=== PATIENT | female | born 1970 | race American Indian/Alaskan Native ===

== ENCOUNTER 2016-09-06 09:40 | Inpatient (IN) | payer MEDICAID ==
[2016-09-06 09:40] VITALS: BMI 27.3
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
[2016-09-06 12:12] LABS: BASO # 0.1 K/uL (0.0-0.2); BASO % 0.9 % (0.0-2.0); EOS # 0.2 K/uL (0.0-0.7); EOS % 2.3 % (0.0-4.0); HEMOGLOBIN 13.5 g/dL (11.0-16.0); LYMPH # 3.3 K/uL (1.0-4.3); LYMPH % 48.5 % (20.0-40.0); MEAN CORPUSCULAR HEMOGLOBIN 25.1 pg (27.0-31.0); MEAN CORPUSCULAR HGB CONC 33.3 g/dL (33.0-37.0); MEAN PLATELET VOLUME 8.8 fL (7.2-11.7); MONO # 0.6 K/uL (0.0-0.8); MONO % 9.1 % (0.0-10.0); NEUT # 2.7 K/uL (1.8-7.0); NEUT % 39.2 % (50.0-75.0); NRBC % 0.2 % (0.0-2.0); RBC 5.38 Mil/uL (3.80-5.20); RED CELL DISTRIBUTION WIDTH 15.9 % (11.5-14.5); WHITE BLOOD COUNT 6.9 K/uL (4.8-10.8)
[2016-09-06 12:14] LABS: MEAN CELL VOLUME 75.5 fL (81.0-99.0)
[2016-09-06 12:17] LABS: PROTHROMBIN TIME 10.6 SECONDS (9.7-12.2)
[2016-09-06 12:26] LABS: ALBUMIN 4.2 g/dL (3.5-5.0)
[2016-09-06 12:28] LABS: GFR AFRICAN-AMERICAN > 60; GFR NON-AFRICAN AMERICAN 60
[2016-09-06 12:29] LABS: ALT/SGPT 13 U/L (9-52); AST/SGOT 51 U/L (14-36); BLOOD UREA NITROGEN 10 mg/dL (7-17)
[2016-09-06 12:30] LABS: CALCIUM 9.5 mg/dl (8.6-10.4)
[2016-09-06] MEDS ORDERED: ceFAZolin IV 1 gm in Dextrose 1 GM/50 ML BAG IVPB ONE (14:55)
[2016-09-06] MEDS ORDERED: Bupivacaine HCl 0.25% PF (10 ml) Inj ONE (14:56)
[2016-09-06] MEDS ORDERED: Lidocaine 1% Inj (20ml) ONE (14:56)
[2016-09-06] MEDS ORDERED: HYDROmorphone 0.5 mg/0.5 ml ISec IVP PRN ×2 (15:12→17:01)
[2016-09-06 15:51] LABS: GFR AFRICAN-AMERICAN > 60; GFR NON-AFRICAN AMERICAN 60
[2016-09-06] MEDS ORDERED: Lactated Ringer's 1,000 ML IV ONE ×2 (15:51)
[2016-09-06 15:52] LABS: BLOOD UREA NITROGEN 9 mg/dL (7-17); CALCIUM 8.9 mg/dl (8.6-10.4)
[2016-09-06] MEDS ORDERED: Midazolam 2 MG/2 ML VIAL ONE (16:07)
[2016-09-06] MEDS ORDERED: Propofol 10 mg/ml Inj (20 ML) ONE (16:07)
[2016-09-06] MEDS ORDERED: Silver Sulfadiazine 1% Cream (20 gm) ONE (16:40)
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
[2016-09-06] MEDS ORDERED: Albuterol-Ipratrop 3 mg / 0.5 (3 ml) UD INH SCH (20:00)
[2016-09-06] MEDS ORDERED: Albuterol-Ipratrop 3 mg / 0.5 (3 ml) UD INH PRN (20:32)
[2016-09-06] MEDS: Dextrose 5%/0.45% NS 1,000 ML IV SCH (20:37)
[2016-09-06] MEDS: ceFAZolin IV 1 gm in Dextrose 1 GM/50 ML BAG IVPB SCH (21:43)
[2016-09-06] MEDS: Oxycodone/Acetaminophen 5/325 mg Tab PO PRN (21:48)
[2016-09-07] MEDS: Dextrose 5%/0.45% NS 1,000 ML IV SCH ×4 (04:11→23:48)
[2016-09-07] MEDS: ceFAZolin IV 1 gm in Dextrose 1 GM/50 ML BAG IVPB SCH (05:35)
--- NOTE | 2016-09-07 11:18 | CP.PCM.PN ---
Subjective - Date & Time of Evaluation Date of Evaluation: 09/07/16 Time of Evaluation: 07:25 - Subjective Subjective: PGY2 Medicine note - Dr. Carpenter's Service Patient seen and examined at bedside. No overnight events per nursing. Patient is resting comfortably, s/p L arm wound debridement, POD #1. NPO for 2nd OR session with Dr. Love later today. Denies fevers, chills, chest pain, SOB, LE edema, or any additional complaints. Pain well controlled. Objective - Vital Signs/Intake and Output Vital Signs (last 24 hours): Temp Pulse Resp BP Pulse Ox 97.5 F L 59 L 20 128/68 100 09/07/16 09:04 09/07/16 09:04 09/07/16 09:04 09/07/16 09:04 09/07/16 09:04 Intake and Output: 09/07/16 09/07/16 06:59 18:59 Intake Total 1650 Output Total 300 Balance 1350 - Medications Medications: Current Medications Albuterol/Ipratropium (Duoneb 3 Mg/0.5 Mg (3 Ml) Ud) 3 ml INH RQ6 PRN PRN Reason: Shortness of Breath Docusate Sodium (Colace) 100 mg PO BID [facility] Last Admin: 09/07/16 10:08 Dose: Not Given Dextrose/Sodium Chloride (Dextrose 5%/0.45% Ns 1000 Ml) 1,000 mls @ 100 mls/hr IV .Q10H [facility] Last Admin: 09/07/16 06:54 Dose: 100 mls/hr Cefazolin Sodium/Dextrose (Ancef Iv 1 Gm Duplex) 1 gm in 50 mls @ 100 mls/hr IVPB Q8H [facility] Last Admin: 09/07/16 05:35 Dose: 100 mls/hr Ketorolac Tromethamine (Toradol) 30 mg IVP Q6 PRN PRN Reason: pain 8-10 Stop: 09/11/16 17:05 Last Admin: 09/07/16 04:06 Dose: 30 mg Oxycodone/Acetaminophen (Percocet 5/325 Mg Tab) 1 tab PO Q4H PRN PRN Reason: pain Stop: 09/09/16 17:05 Last Admin: 09/06/16 21:48 Dose: 1 tab Pantoprazole Sodium (Protonix Inj) 40 mg IVP DAILY [facility] Last Admin: 09/07/16 10:07 Dose: 40 mg - Labs Labs: 09/06/16 15:36 PT 10.6 SECONDS (9.7-12.2) 09/06/16 11:58 INR 1.0 09/06/16 11:58 APTT 31 SECONDS (21-34) 09/06/16 11:58 - Additional Findings Additional findings: - Constitutional Appears: Well, Non-toxic - Head Exam Head Exam: ATRAUMATIC, NORMAL INSPECTION - Eye Exam Eye Exam: EOMI Pupil Exam: PERRL - ENT Exam ENT Exam: Mucous Membranes Moist - Neck Exam Neck exam: Positive for: Full Rom - Respiratory Exam Respiratory Exam: Clear to Auscultation Bilateral, NORMAL BREATHING PATTERN. absent: Rales, Rhonchi, Wheezes - Cardiovascular Exam Cardiovascular Exam: REGULAR RHYTHM, +S1, +S2 - GI/Abdominal Exam GI & Abdominal Exam: Normal Bowel Sounds, Soft. absent: Tenderness - Extremities Exam Extremities exam: Positive for: normal inspection. Negative for: calf tenderness, full ROM Additional comments: Left bicep dressed s/p debridement, CDI - Back Exam Back exam: NORMAL INSPECTION. absent: CVA tenderness (L), CVA tenderness (R) - Neurological Exam Neurological exam: Alert, CN II-XII Intact - Psychiatric Exam Psychiatric exam: Normal Affect, Normal Mood - Skin Skin Exam: Warm, Dry Assessment and Plan - Assessment and Plan (Free Text) Assessment: Traumatic wound of L Arm 09/07: Stop Cefazoline 1gm IVPB Q8H. Start Zosyn 3.375 IVPB Q8H -Dr. Love, took patient to OR for debridement 09/06/16. -percocet 1tab PO q4H PRN -Ketorolac 30mg IVP Q6 PRN -colace 100mg po bid -IVF 100cc/hr -f/u wound culture -ID consulted, Dr. Burleson, help appreciated. Asthma -not in acute exacerbation -albuterol PRN Proph -SCD -Regular diet -Protonix 40mg IVP qd
[2016-09-07 12:07] LABS: ALBUMIN 2.9 g/dL (3.5-5.0)
[2016-09-07 12:09] LABS: BASO % 0.4 % (0.0-2.0); EOS # 0.1 K/uL (0.0-0.7); EOS % 1.9 % (0.0-4.0); LYMPH # 2.8 K/uL (1.0-4.3); LYMPH % 46.2 % (20.0-40.0); MEAN CELL VOLUME 75.7 fL (81.0-99.0); MEAN CORPUSCULAR HEMOGLOBIN 25.1 pg (27.0-31.0); MEAN CORPUSCULAR HGB CONC 33.1 g/dL (33.0-37.0); MEAN PLATELET VOLUME 8.9 fL (7.2-11.7); MONO # 0.6 K/uL (0.0-0.8); MONO % 9.9 % (0.0-10.0); NEUT # 2.5 K/uL (1.8-7.0); NEUT % 41.6 % (50.0-75.0); NRBC % 0.1 % (0.0-2.0); RBC 4.47 Mil/uL (3.80-5.20); RED CELL DISTRIBUTION WIDTH 15.8 % (11.5-14.5)
[2016-09-07 12:10] LABS: ALB/GLOB RATIO 0.9 (1.0-2.1); AST/SGOT 19 U/L (14-36); GFR AFRICAN-AMERICAN > 60; GFR NON-AFRICAN AMERICAN 60
[2016-09-07 12:11] LABS: ALT/SGPT 20 U/L (9-52); BLOOD UREA NITROGEN 10 mg/dL (7-17); CALCIUM 8.4 mg/dl (8.6-10.4); MAGNESIUM 1.8 mg/dL (1.6-2.3)
[2016-09-07 12:11] LABS: HEMOGLOBIN 11.2 g/dL (11.0-16.0)
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
[2016-09-07] MEDS ORDERED: Bupivacaine HCl 0.25% PF (10 ml) Inj ONE (13:18)
[2016-09-07] MEDS ORDERED: Lidocaine 1% Inj (20ml) ONE (13:19)
[2016-09-07] MEDS ORDERED: Midazolam 2 MG/2 ML VIAL ONE (14:02)
[2016-09-07] MEDS ORDERED: Propofol 10 mg/ml Inj (20 ML) ONE (14:02)
[2016-09-07] MEDS ORDERED: Lactated Ringer's 1,000 ML IV ONE ×2 (14:09)
[2016-09-07] MEDS ORDERED: Silver Sulfadiazine 1% Cream (20 gm) ONE (14:16)
[2016-09-07] MEDS: Piperacill/Tazo 3.375gm in Dex 3.375 GM/50 ML BAG IVPB SCH ×2 (14:40→21:41)
[2016-09-07] MEDS ORDERED: HYDROmorphone 0.5 mg/0.5 ml ISec IVP PRN (15:22)
[2016-09-07] MEDS: Oxycodone/Acetaminophen 5/325 mg Tab PO PRN (23:02)
[2016-09-08] MEDS: Piperacill/Tazo 3.375gm in Dex 3.375 GM/50 ML BAG IVPB SCH ×3 (05:32→21:55)
[2016-09-08] MEDS: Dextrose 5%/0.45% NS 1,000 ML IV SCH (08:38)
[2016-09-08 09:04] LABS: BASO % 0.4 % (0.0-2.0); EOS # 0.1 K/uL (0.0-0.7); EOS % 2.4 % (0.0-4.0); HEMOGLOBIN 11.1 g/dL (11.0-16.0); LYMPH # 2.4 K/uL (1.0-4.3); LYMPH % 41.7 % (20.0-40.0); MEAN CELL VOLUME 76.4 fL (81.0-99.0); MEAN CORPUSCULAR HEMOGLOBIN 25.4 pg (27.0-31.0); MEAN CORPUSCULAR HGB CONC 33.3 g/dL (33.0-37.0); MEAN PLATELET VOLUME 8.6 fL (7.2-11.7); MONO # 0.7 K/uL (0.0-0.8); MONO % 11.4 % (0.0-10.0); NEUT # 2.6 K/uL (1.8-7.0); NEUT % 44.1 % (50.0-75.0); NRBC % 0.1 % (0.0-2.0); RBC 4.37 Mil/uL (3.80-5.20); RED CELL DISTRIBUTION WIDTH 16.1 % (11.5-14.5); WHITE BLOOD COUNT 5.9 K/uL (4.8-10.8)
[2016-09-08 09:11] LABS: ALBUMIN 2.9 g/dL (3.5-5.0)
[2016-09-08 09:14] LABS: ALB/GLOB RATIO 0.9 (1.0-2.1); AST/SGOT 24 U/L (14-36); GFR AFRICAN-AMERICAN > 60; GFR NON-AFRICAN AMERICAN 60
[2016-09-08 09:15] LABS: ALT/SGPT 18 U/L (9-52); BLOOD UREA NITROGEN 9 mg/dL (7-17); CALCIUM 8.1 mg/dl (8.6-10.4)
[2016-09-08] MEDS: Oxycodone/Acetaminophen 5/325 mg Tab PO PRN ×2 (10:49→19:58)
--- NOTE | 2016-09-08 14:13 | CP.PCM.PN ---
Subjective - Date & Time of Evaluation Date of Evaluation: 09/08/16 Time of Evaluation: 08:05 - Subjective Subjective: PGY2 Medicine note - Dr. Carpenter's Service Patient seen and examined at bedside. No overnight events per nursing. Patient is resting comfortably, s/p L arm wound debridement initially performed . NPO for 3rd OR session with Dr. Love later today. Denies fevers, chills , chest pain, SOB, LE edema, or any additional complaints. Pain well controlled. Objective - Vital Signs/Intake and Output Vital Signs (last 24 hours): Temp Pulse Resp BP Pulse Ox 98.1 F 60 20 116/71 60 L 09/08/16 07:00 09/08/16 07:00 09/08/16 07:00 09/08/16 07:00 09/08/16 07:00 Intake and Output: 09/08/16 09/08/16 06:59 18:59 Intake Total 1350 Balance 1350 - Medications Medications: Current Medications Albuterol/Ipratropium (Duoneb 3 Mg/0.5 Mg (3 Ml) Ud) 3 ml INH RQ6 PRN PRN Reason: Shortness of Breath Docusate Sodium (Colace) 100 mg PO BID [facility] Last Admin: 09/08/16 10:31 Dose: Not Given Dextrose/Sodium Chloride (Dextrose 5%/0.45% Ns 1000 Ml) 1,000 mls @ 100 mls/hr IV .Q10H [facility] Last Admin: 09/08/16 08:38 Dose: 100 mls/hr Piperacillin Sod/Tazobactam Sod (Zosyn 3.375 Gm Iv Premix) 3.375 gm in 50 mls @ 100 mls/hr IVPB Q8H [facility] Last Admin: 09/08/16 13:17 Dose: 100 mls/hr Ketorolac Tromethamine (Toradol) 30 mg IVP Q6 PRN PRN Reason: pain 8-10 Stop: 09/11/16 17:05 Last Admin: 09/07/16 18:47 Dose: 30 mg Oxycodone/Acetaminophen (Percocet 5/325 Mg Tab) 1 tab PO Q4H PRN PRN Reason: pain Stop: 09/09/16 17:05 Last Admin: 09/08/16 10:49 Dose: 1 tab Pantoprazole Sodium (Protonix Inj) 40 mg IVP DAILY [facility] Last Admin: 09/08/16 10:31 Dose: 40 mg - Labs Labs: 09/08/16 08:47 09/08/16 08:56 PT 10.6 SECONDS (9.7-12.2) 09/06/16 11:58 INR 1.0 09/06/16 11:58 APTT 31 SECONDS (21-34) 09/06/16 11:58 - Additional Findings Additional findings: - Constitutional Appears: Well, Non-toxic - Head Exam Head Exam: ATRAUMATIC, NORMAL INSPECTION - Eye Exam Eye Exam: EOMI Pupil Exam: PERRL - ENT Exam ENT Exam: Mucous Membranes Moist - Neck Exam Neck exam: Positive for: Full Rom - Respiratory Exam Respiratory Exam: Clear to Auscultation Bilateral, NORMAL BREATHING PATTERN. absent: Rales, Rhonchi, Wheezes - Cardiovascular Exam Cardiovascular Exam: REGULAR RHYTHM, +S1, +S2 - GI/Abdominal Exam GI & Abdominal Exam: Normal Bowel Sounds, Soft. absent: Tenderness - Extremities Exam Extremities exam: Positive for: normal inspection. Negative for: calf tenderness, full ROM Additional comments: Left bicep dressed s/p debridement, CDI - Back Exam Back exam: NORMAL INSPECTION. absent: CVA tenderness (L), CVA tenderness (R) - Neurological Exam Neurological exam: Alert, CN II-XII Intact - Psychiatric Exam Psychiatric exam: Normal Affect, Normal Mood - Skin Skin Exam: Warm, Dry Assessment and Plan - Assessment and Plan (Free Text) Assessment: Traumatic wound of L Arm 09/08: Going to 3rd OR session with Dr. Love. Continue IV Abx. 09/07: Stop Cefazoline 1gm IVPB Q8H. Start Zosyn 3.375 IVPB Q8H -Dr. Love, took patient to OR for debridement 09/06/16. -percocet 1tab PO q4H PRN -Ketorolac 30mg IVP Q6 PRN -colace 100mg po bid -IVF 100cc/hr -f/u wound culture -ID consulted, Dr. Burleson, help appreciated. Asthma -not in acute exacerbation -albuterol PRN Prophylaxis -SCD -Regular diet -Protonix 40mg IVP qd
[2016-09-08] MEDS ORDERED: Lactated Ringer's 1,000 ML IV ONE (16:50)
[2016-09-08] MEDS ORDERED: Midazolam 2 MG/2 ML VIAL ONE (17:00)
[2016-09-08] MEDS ORDERED: Propofol 10 mg/ml Inj (20 ML) ONE (17:04)
[2016-09-08] MEDS ORDERED: HYDROmorphone 0.5 mg/0.5 ml ISec IVP PRN (17:31)
--- NOTE | 2016-09-08 19:08 | CP.PCM.PN ---
Subjective - Date & Time of Evaluation Date of Evaluation: 09/08/16 Time of Evaluation: 09:00 - Subjective Subjective: s/p L arm wound debridement initially performed 09/06/16. NPO for 3rd OR session with Dr. Love later today. Objective - Vital Signs/Intake and Output Vital Signs (last 24 hours): Temp Pulse Resp BP Pulse Ox 97.2 F L 54 L 12 138/84 96 09/08/16 18:00 09/08/16 18:10 09/08/16 18:10 09/08/16 18:10 09/08/16 18:10 - Medications Medications: Current Medications Albuterol/Ipratropium (Duoneb 3 Mg/0.5 Mg (3 Ml) Ud) 3 ml INH RQ6 PRN PRN Reason: Shortness of Breath Docusate Sodium (Colace) 100 mg PO BID [facility] Last Admin: 09/08/16 18:49 Dose: 100 mg Hydromorphone HCl (Dilaudid) 0.5 mg IVP Q5M PRN PRN Reason: Pain, moderate (4-7) Stop: 09/08/16 19:31 Dextrose/Sodium Chloride (Dextrose 5%/0.45% Ns 1000 Ml) 1,000 mls @ 100 mls/hr IV .Q10H [facility] Last Admin: 09/08/16 08:38 Dose: 100 mls/hr Piperacillin Sod/Tazobactam Sod (Zosyn 3.375 Gm Iv Premix) 3.375 gm in 50 mls @ 100 mls/hr IVPB Q8H [facility] Last Admin: 09/08/16 13:17 Dose: 100 mls/hr Ketorolac Tromethamine (Toradol) 30 mg IVP Q6 PRN PRN Reason: pain 8-10 Stop: 09/11/16 17:05 Last Admin: 09/07/16 18:47 Dose: 30 mg Ondansetron HCl (Zofran Inj) 4 mg IVP ONCE PRN PRN Reason: Nausea/Vomiting Stop: 09/08/16 19:31 Oxycodone/Acetaminophen (Percocet 5/325 Mg Tab) 1 tab PO Q4H PRN PRN Reason: pain Stop: 09/09/16 17:05 Last Admin: 09/08/16 10:49 Dose: 1 tab Pantoprazole Sodium (Protonix Inj) 40 mg IVP DAILY [facility] Last Admin: 09/08/16 10:31 Dose: 40 mg - Labs Labs: 09/08/16 08:47 09/08/16 08:56 PT 10.6 SECONDS (9.7-12.2) 09/06/16 11:58 INR 1.0 09/06/16 11:58 APTT 31 SECONDS (21-34) 09/06/16 11:58 - Constitutional Appears: Non-toxic, Chronically Ill - Head Exam Head Exam: NORMOCEPHALIC - Eye Exam Eye Exam: absent: Scleral icterus - ENT Exam ENT Exam: Mucous Membranes Dry - Neck Exam Neck Exam: absent: Lymphadenopathy - Respiratory Exam Respiratory Exam: Decreased Breath Sounds, Clear to Ausculation Bilateral Assessment and Plan - Assessment and Plan (Free Text) Plan: cont debridement / IV antibiotics
[2016-09-09] MEDS: Oxycodone/Acetaminophen 5/325 mg Tab PO PRN ×2 (00:54→10:18)
[2016-09-09] MEDS: Piperacill/Tazo 3.375gm in Dex 3.375 GM/50 ML BAG IVPB SCH ×3 (05:01→21:11)
[2016-09-09] MEDS: Dextrose 5%/0.45% NS 1,000 ML IV SCH (05:01)
[2016-09-09 08:30] LABS: ALBUMIN 3.3 g/dL (3.5-5.0); HEMOGLOBIN 12.4 g/dL (11.0-16.0); MEAN CELL VOLUME 75.8 fL (81.0-99.0); MEAN CORPUSCULAR HEMOGLOBIN 25.1 pg (27.0-31.0); MEAN CORPUSCULAR HGB CONC 33.1 g/dL (33.0-37.0); MEAN PLATELET VOLUME 8.9 fL (7.2-11.7); RBC 4.93 Mil/uL (3.80-5.20); RED CELL DISTRIBUTION WIDTH 15.8 % (11.5-14.5); WHITE BLOOD COUNT 6.4 K/uL (4.8-10.8)
[2016-09-09 08:33] LABS: ALB/GLOB RATIO 0.9 (1.0-2.1)
[2016-09-09 08:34] LABS: CALCIUM 8.8 mg/dl (8.6-10.4); MAGNESIUM 2.1 mg/dL (1.6-2.3)
[2016-09-09 09:03] LABS: MONO # 0.5 K/uL (0.0-0.8)
[2016-09-09] MEDS ORDERED: Lidocaine 1% Inj (20ml) ONE (10:57)
--- NOTE | 2016-09-09 11:19 | CP.PCM.PN ---
Subjective - Date & Time of Evaluation Date of Evaluation: 09/09/16 Time of Evaluation: 07:45 - Subjective Subjective: PGY2 Medicine note - Dr. Carpenter's Service Patient seen and examined at bedside. No overnight events per nursing. Patient is resting comfortably, s/p L arm wound debridement initially performed . Patient had 3rd OR session with Dr. Love yesterday, and is schedules for OR again tomorrow. Patient is a difficult stick, and pulled peripheral line out accidentally. Patient refusing to cooperate this morning, states she may leave AMA. Denies fevers, chills, chest pain, SOB, LE edema, or any additional complaints. Pain well controlled. Objective - Vital Signs/Intake and Output Vital Signs (last 24 hours): Temp Pulse Resp BP Pulse Ox 98.3 F 62 20 136/69 100 09/09/16 08:57 09/09/16 08:57 09/09/16 08:57 09/09/16 08:57 09/09/16 08:57 - Medications Medications: Current Medications Albuterol/Ipratropium (Duoneb 3 Mg/0.5 Mg (3 Ml) Ud) 3 ml INH RQ6 PRN PRN Reason: Shortness of Breath Docusate Sodium (Colace) 100 mg PO BID [facility] Last Admin: 09/08/16 18:49 Dose: 100 mg Dextrose/Sodium Chloride (Dextrose 5%/0.45% Ns 1000 Ml) 1,000 mls @ 100 mls/hr IV .Q10H [facility] Last Admin: 09/09/16 05:01 Dose: Not Given Piperacillin Sod/Tazobactam Sod (Zosyn 3.375 Gm Iv Premix) 3.375 gm in 50 mls @ 100 mls/hr IVPB Q8H [facility] Last Admin: 09/09/16 05:01 Dose: Not Given Ketorolac Tromethamine (Toradol) 30 mg IVP Q6 PRN PRN Reason: pain 8-10 Stop: 09/11/16 17:05 Last Admin: 09/07/16 18:47 Dose: 30 mg Lidocaine HCl (Lidocaine 1%) 20 ml INFIL ONCE ONE Stop: 09/09/16 11:31 Oxycodone/Acetaminophen (Percocet 5/325 Mg Tab) 1 tab PO Q4H PRN PRN Reason: pain Stop: 09/09/16 17:05 Last Admin: 09/09/16 10:18 Dose: 1 tab Pantoprazole Sodium (Protonix Inj) 40 mg IVP DAILY [facility] Last Admin: 09/08/16 10:31 Dose: 40 mg - Labs Labs: 09/09/16 08:08 09/09/16 08:08 PT 10.6 SECONDS (9.7-12.2) 09/06/16 11:58 INR 1.0 09/06/16 11:58 APTT 31 SECONDS (21-34) 09/06/16 11:58 - Additional Findings Additional findings: - Constitutional Appears: Well, Non-toxic - Head Exam Head Exam: ATRAUMATIC, NORMAL INSPECTION - Eye Exam Eye Exam: EOMI Pupil Exam: PERRL - ENT Exam ENT Exam: Mucous Membranes Moist - Neck Exam Neck exam: Positive for: Full Rom - Respiratory Exam Respiratory Exam: Clear to Auscultation Bilateral, NORMAL BREATHING PATTERN. absent: Rales, Rhonchi, Wheezes - Cardiovascular Exam Cardiovascular Exam: REGULAR RHYTHM, +S1, +S2 - GI/Abdominal Exam GI & Abdominal Exam: Normal Bowel Sounds, Soft. absent: Tenderness - Extremities Exam Extremities exam: Positive for: normal inspection. Negative for: calf tenderness, full ROM Additional comments: Left bicep dressed s/p debridement, CDI - Back Exam Back exam: NORMAL INSPECTION. absent: CVA tenderness (L), CVA tenderness (R) - Neurological Exam Neurological exam: Alert, CN II-XII Intact - Psychiatric Exam Psychiatric exam: Normal Affect, Normal Mood - Skin Skin Exam: Warm, Dry Assessment and Plan - Assessment and Plan (Free Text) Assessment: Traumatic wound of L Arm 09/09: Patient NPO AM for OR session with Dr. Love tomorrow. 09/08: Going to 3rd OR session with Dr. Love. Continue IV Abx. 09/07: Stop Cefazoline 1gm IVPB Q8H. Start Zosyn 3.375 IVPB Q8H -Dr. Love, took patient to OR for debridement 09/06/16. -percocet 1tab PO q4H PRN -Ketorolac 30mg IVP Q6 PRN -colace 100mg po bid -IVF 100cc/hr -f/u wound culture -ID consulted, Dr. Burleson, help appreciated. Asthma -not in acute exacerbation -albuterol PRN Prophylaxis -SCD -Regular diet -Protonix 40mg IVP qd
[2016-09-09] MEDS ORDERED: Lidocaine 1% Inj (20ml) INFIL ONE (11:30)
[2016-09-10] MEDS: Dextrose 5%/0.45% NS 1,000 ML IV SCH ×3 (02:33→21:15)
[2016-09-10] MEDS: Piperacill/Tazo 3.375gm in Dex 3.375 GM/50 ML BAG IVPB SCH ×3 (06:26→19:59)
[2016-09-10] MEDS ORDERED: Pantoprazole 40 mg EC Tab PO SCH (10:00)
[2016-09-10 11:06] LABS: MEAN CORPUSCULAR HEMOGLOBIN 24.5 pg (27.0-31.0); MEAN CORPUSCULAR HGB CONC 32.6 g/dL (33.0-37.0)
[2016-09-10 11:16] LABS: HEMOGLOBIN 11.3 g/dL (11.0-16.0); MEAN CELL VOLUME 75.2 fL (81.0-99.0); RBC 4.62 Mil/uL (3.80-5.20); RED CELL DISTRIBUTION WIDTH 15.6 % (11.5-14.5); WHITE BLOOD COUNT 6.6 K/uL (4.8-10.8)
[2016-09-10 11:26] LABS: ALBUMIN 3.1 g/dL (3.5-5.0)
[2016-09-10 11:29] LABS: ALT/SGPT 20 U/L (9-52); AST/SGOT 21 U/L (14-36); BLOOD UREA NITROGEN 12 mg/dL (7-17); GFR AFRICAN-AMERICAN > 60; GFR NON-AFRICAN AMERICAN 60
[2016-09-10 11:30] LABS: CALCIUM 8.8 mg/dl (8.6-10.4); MAGNESIUM 1.9 mg/dL (1.6-2.3)
[2016-09-10 11:55] LABS: LYMPH # 2.3 K/uL (1.0-4.3); MONO # 1.3 K/uL (0.0-0.8)
[2016-09-10] MEDS ORDERED: Bacitracin Ointment 30 GM TUBE ONE (14:31)
[2016-09-10] MEDS ORDERED: Lactated Ringer's 1,000 ML IV ONE ×2 (14:45→15:43)
[2016-09-10] MEDS ORDERED: Midazolam 2 MG/2 ML VIAL ONE (14:47)
[2016-09-10] MEDS ORDERED: Propofol 10 mg/ml Inj (20 ML) ONE (14:47)
--- NOTE | 2016-09-10 15:25 | CP.PCM.PN ---
Subjective - Date & Time of Evaluation Date of Evaluation: 09/10/16 Time of Evaluation: 09:35 - Subjective Subjective: PGY2 Medicine Note- Dr. Carpenter's service Patient seen and examined. Patient NPO for I&D today. Patient reports mild pain at site of wound but pain is well-managed. Objective - Vital Signs/Intake and Output Vital Signs (last 24 hours): Temp Pulse Resp BP Pulse Ox 98 F 57 L 20 132/75 95 09/10/16 07:00 09/10/16 07:00 09/10/16 07:00 09/10/16 07:00 09/10/16 07:00 - Medications Medications: Current Medications Albuterol/Ipratropium (Duoneb 3 Mg/0.5 Mg (3 Ml) Ud) 3 ml INH RQ6 PRN PRN Reason: Shortness of Breath Docusate Sodium (Colace) 100 mg PO BID [facility] Last Admin: 09/10/16 10:15 Dose: 100 mg Dextrose/Sodium Chloride (Dextrose 5%/0.45% Ns 1000 Ml) 1,000 mls @ 100 mls/hr IV .Q10H [facility] Last Admin: 09/10/16 11:22 Dose: Not Given Piperacillin Sod/Tazobactam Sod (Zosyn 3.375 Gm Iv Premix) 3.375 gm in 50 mls @ 100 mls/hr IVPB Q8H [facility] Last Admin: 09/10/16 12:05 Dose: 100 mls/hr Pantoprazole Sodium (Protonix Ec Tab) 40 mg PO DAILY [facility] Last Admin: 09/10/16 10:15 Dose: 40 mg - Labs Labs: 09/10/16 10:57 09/10/16 10:57 PT 10.6 SECONDS (9.7-12.2) 09/06/16 11:58 INR 1.0 09/06/16 11:58 APTT 31 SECONDS (21-34) 09/06/16 11:58 - Constitutional Appears: Non-toxic, No Acute Distress - Head Exam Head Exam: ATRAUMATIC, NORMOCEPHALIC - Eye Exam Eye Exam: EOMI - ENT Exam ENT Exam: Mucous Membranes Moist - Respiratory Exam Respiratory Exam: Clear to Ausculation Bilateral, NORMAL BREATHING PATTERN. absent: Rales, Rhonchi, Wheezes - Cardiovascular Exam Cardiovascular Exam: +S1, +S2 - GI/Abdominal Exam GI & Abdominal Exam: Soft, Normal Bowel Sounds. absent: Tenderness - Extremities Exam Extremities Exam: absent: Pedal Edema Additional comments: left upper arm wrapped in clean bandage, mild tenderness around dressing - Neurological Exam Neurological Exam: Alert, Awake - Psychiatric Exam Psychiatric exam: Normal Affect - Skin Skin Exam: Dry, Warm Assessment and Plan - Assessment and Plan (Free Text) Assessment: Traumatic wound of L Arm 09/10: Patient to go to OR today with Dr. Love for I&D continue zosyn 09/09: Patient NPO AM for OR session with Dr. Love tomorrow. 09/08: Going to 3rd OR session with Dr. Love. Continue IV Abx. 09/07: Stop Cefazoline 1gm IVPB Q8H. Start Zosyn 3.375 IVPB Q8H -Dr. Love, took patient to OR for debridement 09/06/16. -percocet 1tab PO q4H PRN -Ketorolac 30mg IVP Q6 PRN -colace 100mg po bid -IVF 100cc/hr -wound culture: enterobacter cloacae, sensitive to zosyn -ID consulted, Dr. Burleson, help appreciated. Asthma -not in acute exacerbation -albuterol PRN Prophylaxis -SCD -Protonix 40mg PO qd Disposition Patient to be dc likely tomorrow
[2016-09-10] MEDS ORDERED: HYDROmorphone 0.5 mg/0.5 ml ISec IVP PRN (15:46)
[2016-09-10] MEDS ORDERED: Lactated Ringer's 1,000 ML IV SCH (16:00)
--- NOTE | 2016-09-10 16:40 | CP.PCM.PN ---
Subjective - Date & Time of Evaluation Date of Evaluation: 09/10/16 Time of Evaluation: 08:00 - Subjective Subjective: events noted iv rx in progress Objective - Vital Signs/Intake and Output Vital Signs (last 24 hours): Temp Pulse Resp BP Pulse Ox 97.4 F L 55 L 11 L 152/83 H 98 09/10/16 15:43 09/10/16 16:26 09/10/16 16:26 09/10/16 16:26 09/10/16 16:26 Intake and Output: 09/10/16 09/10/16 06:59 18:59 Intake Total 800 Balance 800 - Medications Medications: Current Medications Albuterol/Ipratropium (Duoneb 3 Mg/0.5 Mg (3 Ml) Ud) 3 ml INH RQ6 PRN PRN Reason: Shortness of Breath Docusate Sodium (Colace) 100 mg PO BID [facility] Last Admin: 09/10/16 10:15 Dose: 100 mg Hydromorphone HCl (Dilaudid) 0.5 mg IVP Q15M PRN PRN Reason: Pain, moderate (4-7) Stop: 09/10/16 17:46 Dextrose/Sodium Chloride (Dextrose 5%/0.45% Ns 1000 Ml) 1,000 mls @ 100 mls/hr IV .Q10H [facility] Last Admin: 09/10/16 11:22 Dose: Not Given Piperacillin Sod/Tazobactam Sod (Zosyn 3.375 Gm Iv Premix) 3.375 gm in 50 mls @ 100 mls/hr IVPB Q8H [facility] Last Admin: 09/10/16 12:05 Dose: 100 mls/hr Lactated Ringer's (Lactated Ringer's) 1,000 mls @ 100 mls/hr IV .Q10H [facility] Ondansetron HCl (Zofran Inj) 4 mg IVP ONCE PRN PRN Reason: Nausea/Vomiting Stop: 09/10/16 17:47 Pantoprazole Sodium (Protonix Ec Tab) 40 mg PO DAILY [facility] Last Admin: 09/10/16 10:15 Dose: 40 mg - Labs Labs: 09/10/16 10:57 09/10/16 10:57 PT 10.6 SECONDS (9.7-12.2) 09/06/16 11:58 INR 1.0 09/06/16 11:58 APTT 31 SECONDS (21-34) 09/06/16 11:58
[2016-09-10 18:38] VITALS: RESP 20
[2016-09-10] MEDS: Oxycodone/Acetaminophen 5/325 mg Tab PO PRN (21:08)
[2016-09-11 01:31] VITALS: O2SAT 96
[2016-09-11] MEDS: Oxycodone/Acetaminophen 5/325 mg Tab PO PRN ×2 (02:53→10:03)
[2016-09-11] MEDS: Piperacill/Tazo 3.375gm in Dex 3.375 GM/50 ML BAG IVPB SCH (04:53)
[2016-09-11 08:56] VITALS: BP 124/65; PULSE 84; TEMP 98.8
--- NOTE | 2016-09-11 22:32 | CP.PCM.PN ---
Subjective - Date & Time of Evaluation Date of Evaluation: 09/11/16 Time of Evaluation: 08:20 Objective - Vital Signs/Intake and Output Vital Signs (last 24 hours): Temp Pulse Resp BP Pulse Ox 98.8 F 84 20 124/65 96 09/11/16 08:54 09/11/16 08:54 09/11/16 08:54 09/11/16 08:54 09/11/16 08:54 - Labs Labs: 09/10/16 10:57 09/10/16 10:57 PT 10.6 SECONDS (9.7-12.2) 09/06/16 11:58 INR 1.0 09/06/16 11:58 APTT 31 SECONDS (21-34) 09/06/16 11:58
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
--- NOTE | 2016-09-30 06:27 | OP ---
PROCEDURE DATE: 09/07/2016 PREOPERATIVE DIAGNOSIS: Large left arm degloving injury and open wound with necrosis. POSTOPERATIVE DIAGNOSIS: Large left arm degloving injury and open wound with necrosis. PROCEDURE PERFORMED: Aggressive debridement, removal of eschar, and partial tissue transfer closure of large open necrotic wound of the left arm. SURGEON: Dr. Love. ANESTHESIA: General. BLOOD LOSS: 15 mL. POSTOP CONDITION: Stable. INDICATION FOR SURGERY: This is a 46-year-old female status post degloving injury of her left arm, initially repaired at [facility]. The overlying degloving skin has necrosed, now undergo debridement of the wound. PROCEDURE: The patient was taken to the operating room. General anesthesia was administered. The left arm was prepped and draped. The overlying tissue eschar and the eschar was completely debrided and removed to good clean viable tissue. Bleeding was controlled using a Bovie. Larger blood vessels were repaired. The wound was then pulse irrigated and a partial tissue transfer closure was performed with periphery, was packed open with wet saline gauze. The patient tolerated the procedure well, returned to recovery room in stable condition. Walt Love MD
== END 2016-09-11 12:45 | disposition home or self-care (01) | DRG 461 ==
LOC: C.ER 09:40 → C.9E 13:08 → C.5T 15:23 → C.9E 17:02 → C.6T 19:18
PROVIDERS: ADMIT Internal Medicine Pulmonary Disease; ATTEND Internal Medicine
PROC: 0HRCXK3 Replacement of Left Upper Arm Skin with Nonautologous Tissue Substitute, Full Thickness, External Approach (ICD-10-PCS; 2016-09-06)
PROC: 0HBCXZZ Excision of Left Upper Arm Skin, External Approach (ICD-10-PCS; 2016-09-06)
PROC: 0HBCXZZ Excision of Left Upper Arm Skin, External Approach (ICD-10-PCS; principal; 2016-09-06 14:45)
PROC: 0HBCXZZ Excision of Left Upper Arm Skin, External Approach (ICD-10-PCS; 2016-09-11)
DX: S41.102D Unspecified open wound of left upper arm, subsequent encounter (principal); D64.9 Anemia, unspecified; J45.909 Unspecified asthma, uncomplicated; W26.8XXD Contact with other sharp object(s), not elsewhere classified, subsequent encounter

== ENCOUNTER 2016-09-15 09:27 | Inpatient (IN) | payer MEDICAID ==
[2016-09-15 09:27] VITALS: BMI 27.3
--- NOTE | 2016-09-15 10:34 | C.PDOC ---
History Of Present Illness 46 y/o female presents to ED c/o arm injury, status post surgical debridement last week. Patient however notes the wound has not improved and has been worsening. Patient sent to ER by Dr. Love for further evaluation and surgical skin graft. Patient reports pain is 9/10. Denies fever, chills, new weakness or numbness. Time Seen by Provider: 09/15/16 09:47 Chief Complaint (Nursing): Medical Clearance History Per: Patient History/Exam Limitations: no limitations Onset/Duration Of Symptoms: Days Current Symptoms Are (Timing): Still Present Recent travel outside of the [place]: No Past Medical History Reviewed: Historical Data, Nursing Documentation, Vital Signs Vital Signs: Last Vital Signs Temp 97.8 F 09/15/16 15:18 Pulse 66 09/15/16 17:00 Resp 15 09/15/16 17:00 BP 149/88 09/15/16 17:00 Pulse Ox 100 09/15/16 17:00 - Medical History PMH: Anemia, Asthma - [facility] Procedures ALCOHOL DETOXIFICATION (04/22/14) EXCISION OF LEFT UPPER ARM SKIN, EXTERNAL APPROACH (09/06/16) INJECT/INFUSE ELECTROLYT (06/25/14) INJECT/INFUSE NEC (06/25/14) INTRODUCTION OF SERUM/TOX/VACCINE INTO MUSCLE, PERC APPROACH (08/22/16) NEBULIZER THERAPY (06/25/14) REPAIR LEFT UPPER ARM, EXTERNAL APPROACH (08/22/16) Family History: States: Unknown Family Hx - Social History Hx Tobacco Use: Yes Hx Alcohol Use: No Hx Substance Use: No - Immunization History Hx Tetanus Toxoid Vaccination: Yes Hx Influenza Vaccination: Yes Hx Pneumococcal Vaccination: No Review Of Systems Except As Marked, All Systems Reviewed And Found Negative. Constitutional: Negative for: Fever, Chills Skin: Positive for: Other (wounds to left arm). Negative for: Rash Neurological: Negative for: Weakness, Numbness Physical Exam - Physical Exam Appears: Non-toxic, No Acute Distress Skin: Warm, Dry, No Rash Head: Atraumatic, Normacephalic Eye(s): bilateral: Normal Inspection Oral Mucosa: Moist Neck: Normal ROM, Supple Chest: Symmetrical Cardiovascular: Rhythm Regular Respiratory: Normal Breath Sounds, No Rales, No Rhonchi, No Wheezing Gastrointestinal/Abdominal: Soft, No Tenderness Back: Normal Inspection Extremity: Normal ROM, Tenderness, Capillary Refill (< 2 sec.), No Deformity, Swelling, Other (wound left forearm and left upper arm) Pulses: Left Radial: Normal, Right Radial: Normal Neurological/Psych: Oriented x3, Normal Motor, Normal Sensation Gait: Steady ED Course And Treatment - Laboratory Results Result Diagrams: 09/15/16 10:30 09/15/16 10:30 O2 Sat by Pulse Oximetry: 99 (RA) Pulse Ox Interpretation: Normal Progress Note: Labs and morphine ordered, reviewed. Case discussed with Dr. Love. Will take patient to OR for revision and skin graft Disposition - Disposition Disposition: HOSPITALIZED Disposition Time: 10:30 Condition: GOOD - Clinical Impression Clinical Impression: Wound dehiscence, Medical assessment - PA / WEIGHT CLERK / Resident Statement MD/DO has reviewed & agrees with the documentation as recorded. - Scribe Statement The provider has reviewed the documentation as recorded by the Scribe Fredy Baker All medical record entries made by the Ashlieibpierre were at my direction and personally dictated by me. I have reviewed the chart and agree that the record accurately reflects my personal performance of the history, physical exam, medical decision making, and the department course for this patient. I have also personally directed, reviewed, and agree with the discharge instructions and disposition.
[2016-09-15 10:42] LABS: BASO # 0.1 K/uL (0.0-0.2); BASO % 1.1 % (0.0-2.0); EOS # 0.1 K/uL (0.0-0.7); EOS % 2.3 % (0.0-4.0); HEMOGLOBIN 11.6 g/dL (11.0-16.0); MEAN CELL VOLUME 76.1 fL (81.0-99.0); MEAN CORPUSCULAR HEMOGLOBIN 24.8 pg (27.0-31.0); MEAN CORPUSCULAR HGB CONC 32.6 g/dL (33.0-37.0); MEAN PLATELET VOLUME 9.2 fL (7.2-11.7); MONO # 0.7 K/uL (0.0-0.8); MONO % 11.4 % (0.0-10.0); NEUT # 1.9 K/uL (1.8-7.0); NEUT % 33.2 % (50.0-75.0); NRBC % 0.1 % (0.0-2.0); RBC 4.69 Mil/uL (3.80-5.20); RED CELL DISTRIBUTION WIDTH 16.1 % (11.5-14.5); WHITE BLOOD COUNT 5.8 K/uL (4.8-10.8)
[2016-09-15 10:50] LABS: ALBUMIN 3.5 g/dL (3.5-5.0)
[2016-09-15 10:53] LABS: GFR AFRICAN-AMERICAN > 60; GFR NON-AFRICAN AMERICAN > 60
[2016-09-15 10:54] LABS: ALB/GLOB RATIO 0.9 (1.0-2.1); ALT/SGPT 24 U/L (9-52); AST/SGOT 29 U/L (14-36); BLOOD UREA NITROGEN 13 mg/dL (7-17); CALCIUM 8.7 mg/dl (8.6-10.4)
[2016-09-15 11:04] LABS: PROTHROMBIN TIME 11.8 SECONDS (9.7-12.2)
--- NOTE | 2016-09-15 11:36 | RAD ---
HISTORY: pre op COMPARISON: None available. TECHNIQUE: Chest, one view. FINDINGS: Examination limited by habitus. LUNGS: No focal consolidation. Please note that chest x-ray has limited sensitivity for the detection of pulmonary masses. PLEURA: No significant pleural effusion identified. No definite pneumothorax . CARDIOVASCULAR: Heart size appears within normal limits. OSSEOUS STRUCTURES: No acute osseous abnormality identified. VISUALIZED UPPER ABDOMEN: Unremarkable. OTHER FINDINGS: Surgical carmelina seen left upper extremity, partially imaged. IMPRESSION: No focal consolidation, significant pleural effusion, or definite pneumothorax identified.
[2016-09-15] MEDS ORDERED: Midazolam 2 MG/2 ML VIAL ONE (14:10)
[2016-09-15] MEDS ORDERED: Propofol 10 mg/ml Inj (20 ML) ONE (14:10)
[2016-09-15] MEDS ORDERED: Lactated Ringer's 1,000 ML IV ONE ×2 (14:31→15:18)
[2016-09-15] MEDS: ceFAZolin IV 1 gm in Dextrose 1 GM/50 ML BAG IVPB ONE ×2 (14:40→15:31)
[2016-09-15] MEDS ORDERED: HYDROmorphone 0.5 mg/0.5 ml ISec IVP PRN (14:55)
[2016-09-15] MEDS ORDERED: Lactated Ringer's 1,000 ML IV SCH (15:00)
[2016-09-15] MEDS: ceFAZolin IV 1 gm in Dextrose 1 GM/50 ML BAG IVPB SCH (22:19)
[2016-09-16] MEDS ORDERED: DiphenhydrAMINE 50 mg/ml Inj IVP STA (00:22)
[2016-09-16] MEDS: ceFAZolin IV 1 gm in Dextrose 1 GM/50 ML BAG IVPB SCH ×2 (06:19→15:03)
[2016-09-16 08:24] VITALS: RESP 18; TEMP 98.1
[2016-09-16 15:58] VITALS: BP 118/72; PULSE 59; O2SAT 98
--- NOTE | 2016-09-17 07:07 | CARD ---
APPROVED REPORT EKG Measurement Heart [id number] <Conclusion> Sinus bradycardia Lateral infarct, age undetermined Abnormal ECG
--- NOTE | 2016-09-23 15:37 | PCM.OP ---
Operative Report - Operative Report Date of Surgery/Procedure: 09/15/16 Time of Surgery/Procedure: 12:00 Surgeon: Dr. Love Anesthesia/Sedation: General Pre-Operative Diagnosis: Open wound, left arm Post-Operative Diagnosis: Open wound, left arm Indication for Surgery: This is a 46 y/o female s/p dermagraft placement last week who presents today for change of first dressing in the operating room along with debridement. Operative Findings: Gross findings: There was an area of non-take of the graft which was replaced approx. 60% of graft had taken. A partial tissue transfer closure was performed to further close the wound. Procedure/Operation Description: Debridement of open wound, left arm with replacement of Dermagraft and partial tissue transfer closure. Pt was taken to the operating room, general anesthesia administered in the left arm was prepped and draped. After the dressing was taken down, the wound was aggressively irrigated, debrided, and a new dermagraft was placed on the open area medially. A merrier laterally was closed via anterior distransfer closure, using Monocryl and skin clips. The wound was dressed thoroughly. Pt returned to the recovery room in stable condition. Estimated Blood Loss: 10 cc Complications: None Discharge & Condition: Stable
== END 2016-09-16 16:46 | disposition home or self-care (01) | DRG 440 ==
LOC: C.ER 09:27 → C.9E 10:18 → C.6T 18:21
PROVIDERS: ADMIT Surgery; ATTEND Surgery
PROC: 0HW Skin and Breast, Revision (ICD-10-PCS; 2016-09-15)
PROC: 0HQCXZZ Repair Left Upper Arm Skin, External Approach (ICD-10-PCS; 2016-09-15)
PROC: 0HBCXZZ Excision of Left Upper Arm Skin, External Approach (ICD-10-PCS; principal; 2016-09-15 15:00)
DX: T86.821 Skin graft (allograft) (autograft) failure (principal); T81.30XA Disruption of wound, unspecified, initial encounter; D64.9 Anemia, unspecified; J45.909 Unspecified asthma, uncomplicated; Y83.2 Surgical operation with anastomosis, bypass or graft as the cause of abnormal reaction of the patient, or of later complication, without mention of misadventure at the time of the procedure; Y82.8 Other medical devices associated with adverse incidents; Z87.891 Personal history of nicotine dependence